=== PATIENT | male | born 1985 | race African-American/Black ===

== ENCOUNTER 2022-03-14 08:11 | Emergency (ER) | payer SELFPAY | END 2022-03-14 10:09 | disposition home or self-care (01) | LOC: CSHERS 08:11 | DX: U07.1 COVID-19 (principal) | CPT/HCPCS: 87804; 99283; U0003; U0005 ==

== ENCOUNTER 2022-07-04 18:06 | Emergency (ER) | payer SELFPAY | END 2022-07-04 18:59 | disposition home or self-care (01) | LOC: CSHERS 18:06 | DX: B35.3 Tinea pedis (principal); M79.671 Pain in right foot; M79.672 Pain in left foot | CPT/HCPCS: 99283 ==

== ENCOUNTER 2022-10-25 03:12 | Emergency (ER) | payer SELFPAY ==
[2022-10-25] MEDS ORDERED: Morphine 4 MG/ML VIAL ONE ×2 (03:30→04:01)
[2022-10-25] MEDS ORDERED: Ondansetron PF 4 MG/2 ML Vial ONE ×2 (03:30→04:39)
[2022-10-25 04:01] LABS: ALT (SGPT) 14 U/L (8-55); AST (SGOT) 19 U/L (5-34); Albumin 4.2 g/dL (3.5-5.0); Alkaline Phosphatase 87 U/L (40-110); Anion Gap 14 mmol/L (10-20); BUN (Urea Nitrogen) 7 mg/dL (8.9-20.6); Bilirubin, Total 0.6 mg/dL (0.2-1.2); Calc. Creatinine Clearance 0 mL/min (70-130); Calcium 9.3 mg/dL (7.8-10.44); Carbon Dioxide 24 mmol/L (22-29); Chloride 104 mmol/L (98-107); Estimated GFR 103; Globulin 3.5 g/dL (2.4-3.5); Glucose 100 mg/dL (70-105); Potassium 3.2 mmol/L (3.5-5.1); Protein, Total 7.7 g/dL (6.0-8.3); Sodium 139 mmol/L (136-145)
[2022-10-25 04:13] LABS: PTT 23.7 sec (22.0-33.0); Prothrombin Time 10.6 sec (9.5-12.1)
[2022-10-25 04:25] LABS: #Basophils 0.1 10x3/uL (0.0-0.2); #Eosinphils 0.2 10x3/uL (0.0-0.5); #Monocytes 0.8 10x3/uL (0.0-1.1); #Neutrophils 2.2 10x3/uL (1.5-8.4); %Basophils 0.7 % (0.0-2.0); %Eosinophils 2.4 % (0.0-6.0); %Lymphocytes 55.7 % (18.0-47.0); %Monocytes 10.6 % (0.0-10.0); %Neutrophils 30.5 % (40.0-75.0); Hematocrit 42.2 % (38.8-50.0); Hemoglobin 14.7 g/dL (13.5-17.5); Mean Corpuscular HGB CONC 34.8 g/dL (32.0-36.0); Mean Corpuscular Hemoglobin 31.7 pg (27.0-33.0); Mean Corpuscular Volume 91.1 fl (81.2-95.1); Platelet Count 302 10x3/uL (150-450); RBC Distribution Width 13.3 % (11.5-14.5); Red Blood Cell (RBC) Count 4.63 10x6/uL (4.32-5.72); White Blood Cell (WBC) Count 7.1 10x3/uL (3.5-10.5)
[2022-10-25] MEDS ORDERED: Mupirocin 2% Ointment 22 GM Tube ONE (04:33)
[2022-10-25] MEDS ORDERED: Bupivacaine 0.25% HCL 30 ML VIAL ONE (04:33)
[2022-10-25] MEDS ORDERED: fentaNYL 50 mcg/mL 1 mL Vial ONE (04:38)
[2022-10-25] MEDS ORDERED: PROPOFOL 20 ML ONE (04:38)
[2022-10-25] MEDS ORDERED: Succinylcholine 200 MG/10 ml SYRINGE FS ONE (04:39)
[2022-10-25] MEDS ORDERED: Metoclopramide HCl 10 MG/2 ML VIAL ONE (04:39)
[2022-10-25] MEDS ORDERED: Dexamethasone 4 mg/ml Vial ONE (04:39)
[2022-10-25] MEDS ORDERED: Lidocaine 2% PF 5 ML VIAL ONE (04:39)
[2022-10-25] MEDS ORDERED: Famotidine/PF 20 mg/2ml Vial ONE (04:43)
[2022-10-25] MEDS ORDERED: Midazolam HCl 2 mg/2 ml Vial ONE (04:54)
[2022-10-25] MEDS ORDERED: Ketorolac Tromethamine 30 MG/ML VIAL ONE (05:14)
[2022-10-25] MEDS ORDERED: CEFAZOLIN 1 GM VIAL ONE ×2 (05:19→05:20)
== END 2022-10-25 05:05 | disposition admitted as inpatient to this hospital (09) ==
LOC: CSHERS 03:12 → CSHSDC/OP 03:12
DX: N44.00 Torsion of testis, unspecified (principal)
CPT/HCPCS: 76870; 80053; 85025; 85610; 85730; 93976; 96374; 96375; 96376; J0690; J1100; J1885; J2001; J2250; J2270; J2405; J2704; J2765; J3010; S0020; S0028